=== PATIENT | male | born 1980 | race Caucasian/White ===

== ENCOUNTER 2024-02-13 10:08 | Outpatient (CLI) | payer BC, SELFPAY ==
--- NOTE | 2024-02-13 10:00 | CRLHL7_ITS ---
For Patients: As a result of the Century Cures Act, medical imaging exams and procedure reports are released immediately into your electronic medical record. You may view this report before your referring provider. If you have questions, please contact your health care provider. Indication: Left distal radius fracture Technique: Noncontrast CT left wrist Please note that all CT scans at this facility use dose modulation, iterative reconstruction, and/or weight-based dosing when appropriate to reduce radiation dose to as low as reasonably achievable. Comparison: 02/12/2024 plain films Findings: There is a mildly displaced and comminuted intra-articular distal radial metaphyseal fracture with slight dorsal impaction. There is 1 millimeter of articular surface step-off at the dorsal aspect. Additional fracture of the volar tip of the distal radius noted. Multiple small adjacent bone fragments are present. The carpal bones are intact as is the ulnar styloid. Soft tissue swelling and joint effusion. Impression: Mildly displaced and comminuted intra-articular distal radial metaphyseal fracture with slight dorsal impaction and mild articular surface incongruity. Additional intra-articular fracture involving the volar tip of the distal radial metaphysis. Please note that all CT scans at this facility use dose modulation, iterative reconstruction, and/or weight-based dosing when appropriate to reduce radiation dose to as low as reasonably achievable. Dictated by Ramiro Miller MD @ 02/13/2024 12:24:46 PM (Electronically Signed)
== END 2024-02-13 10:09 | disposition home or self-care (01) ==
PROVIDERS: PCP Internal Medicine; Visit Provider Orthopaedic Surgery
DX: S52.502A Unspecified fracture of the lower end of left radius, initial encounter for closed fracture (principal)
CPT/HCPCS: 73200

== ENCOUNTER 2024-08-03 13:48 | Outpatient (CLI) | payer BC, SELFPAY ==
--- NOTE | 2024-08-03 13:45 | MR_ITS ---
[facility] [address] [facility] [address] Phone:?[phone] Fax:?[phone] Referring Physician Information: Koko Anand M.D. [id number] [facility] [address] Phone:?[phone] Fax:?[phone] Patient:Ori Burgos D.O.B:?1980 Sex:?Male Phone:?[phone] [facility] MRN:?[id number] Exam Date:?08/03/2024 EXAM: MRI EXAMINATION OF THE LEFT HAND CLINICAL INFORMATION: Left hand third MCP joint pain. Status post impact injury. Evaluate extensor tendon injury/sagittal band injury. TECHNICAL INFORMATION: Axial PD, T2 and PD fat saturation. Coronal PD, T2, T1 and STIR. Sagittal PD and T2-weighted images acquired. There are no prior studies available for comparison. INTERPRETATION: Bones and joints: Marrow edema signal to indicate osseous contusion without evidence for a fracture involves the dorsum of the long finger metacarpal head. There is a small long finger MCP joint effusion. No discrete osteochondral lesion is seen. No other abnormal bone marrow edema pattern is identified. Tendons: Series 9 image 8 as well as series 5 images 13 through 17 demonstrate a 1.3 cm segment of low to moderate grade partial tearing involving the ulnar surface fibers of the long finger extensor tendon along the level of the metacarpal head. There is a directly adjacent partial tearing without disruption of the sagittal band. The radial sided sagittal band is seen to be intact. Other soft tissues: The collateral ligaments of the long finger MCP joint are seen to be intact, specifically without acute injury. Abnormal thickening with infiltrative fluid and edema signal involves the dorsal soft tissues centered at the level of the MCP joint. No discrete collection. CONCLUSION: 1. There is a 1.3 cm segment of low to moderate grade partial tear involving the ulnar aspect of the long finger extensor tendon along the level of the metacarpal head. 2. There is partial tearing without disruption of the ulnar sided sagittal band of the long finger MCP joint directly adjacent to the extensor tendon. The radial sided sagittal band is seen to be intact. 3. Hemorrhage and inflammation involves the dorsal soft tissues centered at the level of the long finger MCP joint but without a discrete collection. 4. Osseous contusion without fracture or osteochondral lesion involves the dorsum of the long finger metacarpal head. KES Electronically signed on 08/05/2024 7:19:00 AM by Raghavendra Hooker M.D.
== END 2024-08-03 13:49 | disposition home or self-care (01) ==
LOC: MRI 13:48
PROVIDERS: PCP Internal Medicine; Visit Provider Orthopaedic Surgery
DX: M79.642 Pain in left hand (principal); S56.414A Strain of extensor muscle, fascia and tendon of left middle finger at forearm level, initial encounter; S60.032A Contusion of left middle finger without damage to nail, initial encounter; S69.92XA Unspecified injury of left wrist, hand and finger(s), initial encounter
CPT/HCPCS: 73218

== ENCOUNTER 2024-09-10 08:00 | Outpatient (RCR) | payer BC, SELFPAY ==
--- NOTE | 2024-08-11 21:11 | OT.OPOE ---
OT Outpatient Ortho Eval OT Outpatient Ortho Eval* Start: 08/10/24 12:09 Freq: Status: Active Protocol: Document 08/10/24 19:07 LCN (Rec: 08/10/24 19:08 LCN [id number]) E-signed By Nevin Cadet, OTR/L, CLT OT OP Ortho Eval Details Complexity Complexity Low Insurance Information Insurance Information Medicaid,Blue Cross/[employer] Outpatient History/Precautions Current Condition/Medical Diagnosis Referring Provider Koko Anand Medical Diagnoses Extensor tendon disruption: Metacarpophalangeal joint pain of left hand: Treatment Diagnosis L hand stiffness, hand weakness Date of Onset 05/25/24 Other Precautions Immobilization in a yoke splint for 4 weeks, 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 Pt to return for follow-up after being in the yoke splint for 4 weeks. 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 Pain and swelling developed after he hit the back of his hand on a light switch May 25, 2024. Since then, he has experienced persistent pain and swelling, which he localizes to the distal 3rd metacarpal and MCP joint. He reports no open wounds at time of injury. No subsequent erythema. He is able to flex and extend his fingers but states that this is painful, has increased am swelling and stiffness. Middle finger catches on his pockets. Has a guarded hand resting position in MCP flexion to 45, cupped hand , slight hooked wrist flexion / antalgic. (Per MD note 08/09, MRI of his left hand demonstrated low-grade partial tear involving the ulnar aspect of the long finger extensor tendon the level of the metacarpal head. There was also partial tearing without disruption of the ulnar-sided sagittal band of the long finger MCP joint directly adjacent to the extensor tendon. Inflammation involves the dorsal soft tissues centered at the level of the long finger MCP joint but without discrete collection. Osseous contusion without fracture or osteochondral lesion involving the dorsal long finger metacarpal head.) Pain Assessment Pain Pain Yes Pain Comments -11/11 L Middle finger, space 2-3. Range of Motion and Strength Wrist Range of Motion and Strength Wrist Range of Motion and Strength L WR EX to 63 of of 64 PROM, AROM to 52. WR FL to 52 PROM, [address] 10 of 15 UD 45 of 45. Hand/Finger/Thumb Range of Motion and Strength Hand/Finger/Thumb Range of Motion and LIF MCP 85 of 90, PIP 96 of Strength 100, DIP 63. MF MCP 70, PIP 100 of 100, DIP 62. Composite flexion of MF to . 7cm AROM and .3 cm PROM. Mounded edema at 2/3 space, between MC heads IF/MF and web space, improacts full fist with IF/MF. Hand Pinch/Mirror Painter Strength Hand Pinch/Mirror Painter Strength Hand Pinch/Mirror Painter Strength Left Hand,Right Hand Left Hand Mirror Painter Strength Position 1 in Elbow 55 Flexion (lbs) Right Hand Mirror Painter Strength Position 1 in Elbow 132 Flexion (lbs) OT Objective Data Hand Hand Dominance Right OT Problems Problems Problems Decreased Strength,Decreased Range of Motion,Pain,Sensory Sensitivity,Lifting,Gripping, Pinching Problems Comments all gripping pinching, pulling tools, hand fatigues quickly, feels half as strong as it was before. Other Problems Writing,Opening Containers Assessment Assessment Assessment Given Daniel's?difficulty with edema, pain, ROM and strength loss of L hand/IF/MF limiting daily tasks, he would medically benefit from skilled OT to address these areas. Occupational Therapy Treatment Plan - OP Potential Rehabilitation Potential Excellent Set Goals Goals Set with Patient Yes Goals Goals In 8 weeks, pt will demonstrate:? 1) Decreased pn to <2/10 80% of the time with sustained gripping, carrying loads of tools, using a long lever wrench with L hand. 2) I HEP for stretching, gradual strengthening and self mgmt strategies. 3) improved L cover marker strength to 85# and pinch to 20# with L hand/MF pain < 1/10. 4)??Pt to be fit with functional bracing (for yoke splint) and use adaptive strategies to protect joint integrity to support less pain with ADL. Treatment Plan Treatment Plan Evaluation,Edema Control,Joint Mobilization,Manual Therapy, Splinting,Ultrasound, Therapeutic Exercise,Self Care /Home Management,Education Expected Frequency 1x Week Expected Frequency Comments 2-6 visits Home Program Home Program Home Program Initiated Home Program Specifics Compression glove at night, with yoke overtop, yoke during the day; off for exercises. Fist rolling on towel for self mobilization Certification Certification Statement I Certify That: Therapy Services Provided, Therapy Plan Established, Therapy Plan Reviewed Certification Information Clinic ID # [id number] Initial Certification Date 08/11/24 Recertification Due Date 11/09/24 Provider Signature Required Yes Provider Signature Shows Agreement With POC & Medical Necessity Physician NPI Number Write NPI# Here Physician Comment/Change Comment or Changes Physician Signature & Date Requested Please Sign/Date Here
== END 2025-01-08 23:59 | disposition home or self-care (01) ==
PROVIDERS: PCP Internal Medicine; Visit Provider Orthopaedic Surgery
DX: S69.92XD Unspecified injury of left wrist, hand and finger(s), subsequent encounter (principal); Z51.89 Encounter for other specified aftercare
CPT/HCPCS: 97035; 97110; 97165; 97535; L3933; X5282